=== PATIENT | female | born 1970 | race Caucasian/White ===

== ENCOUNTER 2016-06-13 20:57 | Emergency (ER) | payer OTHER ==
[~2016-06-13] VITALS: Ht 170.2 cm; Wt 81.0 kg
[~2016-06-13 20:57] MED LIST: CETI1TAB21 PO; LORTA5 PO; PROT40TA PO; ZOVI200C24 PO
[2016-06-13 21:05] VITALS: BP 140/92; PULSE 100; RESP 18; TEMP 98.3; O2SAT 100
[2016-06-13 21:15] VITALS: BP 140/92; PULSE 100; RESP 18; TEMP 98.3; O2SAT 100
--- NOTE | 2016-06-13 21:25 | PD ---
HPI Chief Complaint: Abdominal Pain Time Seen by Provider: 21:09 Travel History International Travel<30 days: No Contact w/Intl Traveler<30days: No Traveled to known affect area: No History of Present Illness HPI 45yo F with PMH of congenital gastric diverticulum, HTN presents to the ED with c/o epigastric abdominal pain that started 40 minutes ago. Describes it as burning and radiates to midback. Pt had some nausea this morning. Had nonbloody diarrhea that had resolved today. States daughter had stomach virus. Denies any chest pain but epigastric pain is around xiphoid process. Denies any sob, vomiting, focal weakness or numbness. Denies frequent alcohol use or smoking cig. PFSH Past Medical History Cardiovascular Problems: Yes (MITRAL VALVE PROLAPSE) Diminished Hearing: No Diverticulitis: Yes Genitourinary: Yes (HERPES) Immunizations Current: Yes Past Surgical History Gynecologic Surgery: Yes (IMPLANON IN LEFT ARM) Social History Alcohol Use: Yes (OCC) Tobacco Use: No Substance Use: No Allergies-Medications (Allergen,Severity, Reaction): Coded Allergies: Codeine (Verified Allergy, Severe, 06/13/16) Dilaudid (Verified Allergy, Severe, 06/13/16) Reported Meds & Prescriptions Reported Meds & Active Scripts Active Reported Zyrtec Allergy (Cetirizine HCl) 10 Mg Cap 10 Mg PO DAILY Acyclovir 400 Mg Tab 400 Mg PO BID Levonorgestrel-Ethinyl Estradiol 0.1-0.02 Mg Tab 1 Tab PO DAILY Amlodipine (Amlodipine Besylate) 5 Mg Tab 5 Mg PO DAILY Review of Systems Except as stated in HPI: all other systems reviewed are Neg Physical Exam Narrative GENERAL: 45yo F in moderate distress. SKIN: Focused skin assessment warm/dry. HEAD: Atraumatic. Normocephalic. CARDIOVASCULAR: Regular rate and rhythm. No murmur appreciated. Xiphoid process is tender. No erythema or rash. RESPIRATORY: No accessory muscle use. Clear to auscultation. Breath sounds equal bilaterally. GASTROINTESTINAL: Abdomen soft, +Epigastric ttp. No rebound tenderness or guarding. MUSCULOSKELETAL: No obvious deformities. No clubbing. No cyanosis. No edema. NEUROLOGICAL: Awake and alert. No obvious cranial nerve deficits. Motor grossly within normal limits. Normal speech. PSYCHIATRIC: Appropriate mood and affect; insight and judgment normal. Data Data Last Documented VS Vital Signs Date Time Temp Pulse Resp B/P Pulse Ox O2 Delivery O2 Flow Rate FiO2 06/13/16 22:48 84 16 149/81 96 Room Air 06/13/16 21:15 98.3 Orders Complete Blood Count With Diff (06/13/16 21:18) Comprehensive Metabolic Panel (06/13/16 21:18) Lipase (06/13/16 21:18) Troponin I (06/13/16 21:18) Ckmb (Isoenzyme) Profile (06/13/16 21:18) Electrocardiogram (06/13/16 ) Chest, Single Ap (06/13/16 ) Ketorolac Inj (Toradol Inj) (06/13/16 21:30) Labs Laboratory Tests Test 06/13/16 21:40 White Blood Count 6.5 TH/MM3 Red Blood Count 4.27 MIL/MM3 Hemoglobin 12.9 GM/DL Hematocrit 38.7 % Mean Corpuscular Volume 90.6 FL Mean Corpuscular Hemoglobin 30.1 PG Mean Corpuscular Hemoglobin 33.2 % Concent Red Cell Distribution Width 12.4 % Platelet Count 300 TH/MM3 Mean Platelet Volume 7.7 FL Neutrophils (%) (Auto) 74.9 % Lymphocytes (%) (Auto) 17.8 % Monocytes (%) (Auto) 4.1 % Eosinophils (%) (Auto) 2.9 % Basophils (%) (Auto) 0.3 % Neutrophils # (Auto) 4.9 TH/MM3 Lymphocytes # (Auto) 1.1 TH/MM3 Monocytes # (Auto) 0.3 TH/MM3 Eosinophils # (Auto) 0.2 TH/MM3 Basophils # (Auto) 0.0 TH/MM3 CBC Comment DIFF FINAL Differential Comment Sodium Level 139 MEQ/L Potassium Level 3.5 MEQ/L Chloride Level 103 MEQ/L Carbon Dioxide Level 24.3 MEQ/L Anion Gap 12 MEQ/L Blood Urea Nitrogen 10 MG/DL Creatinine 0.83 MG/DL Estimat Glomerular Filtration 74 ML/MIN Rate Random Glucose 105 MG/DL Calcium Level 8.3 MG/DL Total Bilirubin 0.5 MG/DL Aspartate Amino Transf 14 U/L (AST/SGOT) Alanine Aminotransferase 23 U/L (ALT/SGPT) Alkaline Phosphatase 100 U/L Total Creatine Kinase 72 U/L Troponin I LESS THAN 0.02 NG/ML Total Protein 7.8 GM/DL Albumin 3.5 GM/DL Lipase 91 U/L [facility] Medical Decision Making Medical Screen Exam Complete: Yes Emergency Medical Condition: Yes Interpretation(s) EKG: NSR 96bpm. Normal axis. Q wave III. TWI III. No ST segment elevation or depression. Differential Diagnosis Acute pancreatitis vs. Gastroenteritis vs. atypical chest pain vs. costochondritis Narrative Course 45yoF with epigastric abdominal pain today. Labs reviewed, no leukocytosis. Lipase normal. CMP unremarkable. Troponin negative. CXR showed no acute cardiopulmonary disease. It does not sound cardiac. Pt reevaluated after toradol and pain has resolved. Abdomen is soft, nontender. Pt has a GI physician and omeprazole at home. Last endoscopy was 4 years ago and is due for one. Pt tolerating PO. Return precautions given. Diagnosis Primary Impression: Abdominal pain Qualified Code: R10.13 - Epigastric pain Patient Instructions: General Instructions Departure Forms: Tests/Procedures Additional Instructions: Please follow up with your GI physician as outpatient. Return to the ED if symptoms worsen. Med/Other Pt SpecificInfo: Prescription(s) given Scripts Acetaminophen (Acetaminophen Extra Strength)500 Mg [id number] Mg PO Q6H PRN (PAIN SCALE 1 TO 4) #20 TAB Ref 0 Prov:Roz Chandler DO 06/13/16 Disposition: 01 DISCHARGE HOME Condition: Stable Roz Chandler DO Jun 13, 2016 21:25
[2016-06-13] MEDS ORDERED: ACYC400T PO (21:27)
[2016-06-13] MEDS ORDERED: LEVO-33 PO (21:27)
[2016-06-13] MEDS ORDERED: AMLO5TAB2 PO (21:27)
[2016-06-13] MEDS ORDERED: ZYRT10CA PO (21:29)
[2016-06-13] MEDS ORDERED: KETOROLAC TROMETHAMINE 30 MG/ML (IVP) VIAL IV PUSH ONE (21:30)
[2016-06-13 21:47] LABS: AUTOMATED NEUTROPHIL # 4.9 TH/MM3 (1.8-7.7); BASOPHIL % 0.3 % (0.0-2.0); EOSINOPHIL # 0.2 TH/MM3 (0-0.4); EOSINOPHIL % 2.9 % (0.0-4.0); HEMATOCRIT 38.7 % (35.0-46.0); HEMO FLAGS DIFF FINAL; LYMPH % 17.8 % (9.0-44.0); LYMPHOCYTE # 1.1 TH/MM3 (1.0-4.8); MEAN CELL VOLUME 90.6 FL (80.0-100.0); MEAN CORPUSCULAR HEMOGLOBIN 30.1 PG (27.0-34.0); MEAN CORPUSCULAR HGB CONC 33.2 % (32.0-36.0); MONO % 4.1 % (0.0-8.0); NEUT % 74.9 % (16.0-70.0); PLATELET COUNT 300 TH/MM3 (150-450); RED BLOOD COUNT 4.27 MIL/MM3 (4.00-5.30); RED CELL DISTRIBUTION WIDTH 12.4 % (11.6-17.2); WHITE BLOOD COUNT 6.5 TH/MM3 (4.0-11.0)
[2016-06-13 21:58] LABS: CHLORIDE 103 MEQ/L (98-107); POTASSIUM 3.5 MEQ/L (3.5-5.1); SODIUM (NA) 139 MEQ/L (136-145)
[2016-06-13 22:02] LABS: ANION GAP 12 MEQ/L (5-15); BICARBONATE 24.3 MEQ/L (21.0-32.0); BLOOD UREA NITROGEN 10 MG/DL (7-18)
[2016-06-13 22:05] LABS: ALT (GPT) 23 U/L (10-53); AST (GOT) 14 U/L (15-37); GLOMERULAR FILTRATION RATE 74 ML/MIN (>89)
[2016-06-13 22:06] LABS: TOTAL BILIRUBIN ADULT 0.5 MG/DL (0.2-1.0)
[2016-06-13 22:08] LABS: ALKALINE PHOSPHATASE 100 U/L (45-117)
--- NOTE | 2016-06-13 22:14 | RADHPO ---
EXAM DATE/TIME: 06/13/2016 21:48 [facility] COMPARISON: No previous studies available for comparison. INDICATIONS : Chest pain. MEDICAL HISTORY : None. SURGICAL HISTORY : None. ENCOUNTER: Initial ACUITY: 1 day PAIN SCORE: 6/10 LOCATION: Mid-chest. FINDINGS: The lungs are clear without infiltrate, nodule, or mass. There is no appreciable pleural effusion fo r technique. Heart and mediastinum are unremarkable. CONCLUSION: No acute cardiopulmonary disease. Mervin Jimenes MD on June 13, 2016 at 22:12 Board Certified Radiologist. This report was verified electronically.
[2016-06-13 22:28] LABS: CREATINE KINASE 72 U/L (26-192)
[2016-06-13 22:48] VITALS: BP_SYST 149; BP_SYST 19; BP_DIAS 81; PULSE 84; RESP 1; RESP 16; O2SAT 96
[2016-06-13] MEDS ORDERED: ACET500T36 PO (23:15)
[2016-06-13 23:21] VITALS: BP 150/80; TEMP 98.2
--- NOTE | 2016-06-14 22:52 | EKG ---
Date Performed: 06/13/2016 Time Performed: 21:23:16 PTAGE: 45 years EKG: Sinus rhythm . Possible inferior infarct - age undetermined Abnormal ECG PREVIOUS TRACING : 08/12/2009 17.54 Compared to prior tracing no significant change DOCTOR: Emiliano Cavanaugh Interpretating Date/Time 06/14/2016 22:50:47
== END 2016-06-13 23:30 | disposition home or self-care (01) ==
LOC: PHED 20:57
DX: R10.13 Epigastric pain (principal); K31.4 Gastric diverticulum; I10 Essential (primary) hypertension; R94.31 Abnormal electrocardiogram [ECG] [EKG]; R11.0 Nausea
CPT/HCPCS: 71010; 80053; 82550; 83690; 84484; 85025; 93005; 96374; 99284; J1885